=== PATIENT | male | born 1960 | race Asian ===

== ENCOUNTER 2017-12-23 18:58 | Emergency (ER) | payer OTHER ==
[~2017-12-23] VITALS: Ht 175.3 cm; Wt 96.2 kg
[2017-12-23 19:05] VITALS: Ht 175.3 cm; Wt 96.2 kg
[2017-12-23 21:10] LABS: BASOPHIL % 0.5 % (0-2); PLATELET COUNT 341 x10^3mcL (130-400)
[2017-12-23 21:14] LABS: CALCIUM 9.7 mg/dL (8.5-10.1); CREATININE SERUM 1.6 mg/dL (0.7-1.3); POTASSIUM SERUM 4.6 mmol/L (3.5-5.1)
[2017-12-23 21:16] LABS: RED CELL DISTRIBUTION WIDTH 17.2 % (11.5-14.5)
[2017-12-23 21:19] LABS: BILIRUBIN TOTAL 0.53 mg/dL (0.20-1.00); TOTAL PROTEIN, SERUM 7.5 g/dL (6.4-8.2)
[2017-12-23 21:20] LABS: ALBUMIN 2.8 g/dL (3.4-5.0)
[2017-12-23 21:21] LABS: UA SPECIFIC GRAVITY 1.015 (1.005-1.035); microscopic required? YES; urine erythrocyte NEGATIVE (NEGATIVE)
[2017-12-24 00:07] VITALS: BP 129/84
== END 2017-12-24 00:36 | disposition home or self-care (01) ==
LOC: ED 18:58
PROVIDERS: Emergency Medicine
DX: M54.41 Lumbago with sciatica, right side (principal); R68.83 Chills (without fever)
CPT/HCPCS: J1885; J2270; J7030; Q0092

== ENCOUNTER 2018-04-05 17:32 | Inpatient (IN) | payer OTHER ==
[~2018-04-05] VITALS: Ht 172.7 cm; Wt 112.0 kg
[2018-04-05 18:02] VITALS: Ht 172.7 cm; Wt 112.0 kg
[2018-04-05 18:45] LABS: BASOPHIL % 0.3 % (0-2); PLATELET COUNT 343 x10^3mcL (130-400); RED CELL DISTRIBUTION WIDTH 18.5 % (11.5-14.5)
[2018-04-05 18:45] LABS: UA SPECIFIC GRAVITY >=1.030 (1.005-1.035); microscopic required? YES; urine erythrocyte TRACE (NEGATIVE)
[2018-04-05 19:07] LABS: CALCIUM 9.7 mg/dL (8.5-10.1); CARBON DIOXIDE 25.5 mmol/L (21-32); CREATININE SERUM 1.8 mg/dL (0.7-1.3)
[2018-04-05 19:09] LABS: BILIRUBIN TOTAL 0.9 mg/dL (0.20-1.00)
[2018-04-05 19:16] LABS: ALBUMIN 3.1 g/dL (3.4-5.0)
[2018-04-05] MEDS ORDERED: ZANTAC 150150 MG PO (22:37)
[2018-04-05] MEDS ORDERED: GOOD SENSE ASPI81 M3 PO (22:37)
[2018-04-05] MEDS ORDERED: NOR5 (22:37)
[2018-04-05] MEDS ORDERED: ATORVASTATIN CA40 M1 PO (22:38)
[2018-04-05] MEDS ORDERED: ZESTRIL20 MG PO (22:38)
[2018-04-05] MEDS ORDERED: VALACYCLOVIR H500 MG PO (22:38)
[2018-04-05] MEDS ORDERED: CLOPIDOGREL75 M1 PO (22:38)
[2018-04-05] MEDS ORDERED: GABAPENTIN300 M4 PO (22:38)
[2018-04-05] MEDS ORDERED: FENOFIBRATE145 M1 PO (22:39)
[2018-04-05] MEDS ORDERED: TOPROL XL50 MG PO (22:39)
[2018-04-05] MEDS ORDERED: HUMALOG100 UNIT/1 (22:39)
[2018-04-05] MEDS ORDERED: LANTUS SOLOS100 U/M1 SQ (22:39)
[2018-04-06 00:05] VITALS: BP 135/90
[2018-04-06 00:26] LABS: CHOLESTEROL/HDL RATIO 3.7; MAGNESIUM 1.7 mg/dL (1.8-2.4); PHOSPHOROUS 1.9 mg/dL (2.5-4.9); T3 TOTAL 0.65 ng/mL
[2018-04-06 00:32] LABS: FREE T4 1.06 ng/dL (0.76-1.46)
[2018-04-06 00:33] LABS: FREE THYROXINE INDEX 1.6 ug/dL (1.4-4.5); T4(THYROXINE) 4.5 ug/dL (4.7-13.3)
[2018-04-06 02:29] LABS: AMPHETAMINE QUAL UR NONE DETECTED (See below)
[2018-04-06 05:15] VITALS: BP 119/73
[2018-04-06 06:44] LABS: BASOPHIL % 0.1 % (0-2); PLATELET COUNT 294 x10^3mcL (130-400)
[2018-04-06 07:00] LABS: CALCIUM 8.6 mg/dL (8.5-10.1); CARBON DIOXIDE 25.9 mmol/L (21-32); CREATININE SERUM 1.5 mg/dL (0.7-1.3); MAGNESIUM 1.7 mg/dL (1.8-2.4); PHOSPHOROUS 1.4 mg/dL (2.5-4.9)
[2018-04-06 07:03] LABS: RED CELL DISTRIBUTION WIDTH 18.4 % (11.5-14.5)
[2018-04-06 08:14] VITALS: BP 139/80
[2018-04-06 16:44] LABS: TOTAL PROTEIN CSF 132 mg/dL (15-45)
[2018-04-06 17:30] VITALS: BP 127/72
[2018-04-06 17:40] LABS: APPEARANCE CSF HAZY; COLOR CSF COLORLESS; LYMPHOCYTE CSF 40 % (40-80); RBC CSF 23 /cumm (0); WBC CSF 427 /cumm (0-5)
[2018-04-06 21:33] VITALS: BP 117/70
[2018-04-07 05:46] VITALS: BP 107/73
[2018-04-07 06:04] LABS: PLATELET COUNT 276 x10^3mcL (130-400)
[2018-04-07 06:23] LABS: CALCIUM 8.1 mg/dL (8.5-10.1); CARBON DIOXIDE 26.7 mmol/L (21-32); CHLORIDE SERUM 105 mmol/L (98-107); CREATININE SERUM 1.3 mg/dL (0.7-1.3); GFR1 > 60 mL/min; GLUCOSE SERUM 264 mg/dL (74-106); POTASSIUM SERUM 4.8 mmol/L (3.5-5.1); SODIUM SERUM 139 mmol/L (136-145)
[2018-04-07 07:10] LABS: BASOPHIL % 0 % (0-2); RED CELL DISTRIBUTION WIDTH 18.3 % (11.5-14.5)
[2018-04-07 09:00] VITALS: BP 127/87
[2018-04-07 13:15] VITALS: BP 104/69
[2018-04-07 17:15] VITALS: BP 118/84
[2018-04-07 20:58] VITALS: BP 133/83
[2018-04-08 05:28] VITALS: BP 114/64
[2018-04-08 08:08] VITALS: BP 136/76
[2018-04-08 10:30] LABS: BASOPHIL % 0.7 % (0-2); CALCIUM 8.3 mg/dL (8.5-10.1); CARBON DIOXIDE 30.2 mmol/L (21-32); CREATININE SERUM 1.6 mg/dL (0.7-1.3); PLATELET COUNT 343 x10^3mcL (130-400); POTASSIUM SERUM 5.1 mmol/L (3.5-5.1); RED CELL DISTRIBUTION WIDTH 17.5 % (11.5-14.5)
[2018-04-08 14:15] VITALS: BP 157/84
[2018-04-08 17:48] VITALS: BP 132/81
[2018-04-08 20:48] VITALS: BP 121/68
[2018-04-09 05:46] VITALS: BP 131/54
[2018-04-09 06:59] LABS: CALCIUM 8.6 mg/dL (8.5-10.1); CARBON DIOXIDE 25.8 mmol/L (21-32); CHLORIDE SERUM 97 mmol/L (98-107); CREATININE SERUM 1.3 mg/dL (0.7-1.3); GFR1 > 60 mL/min; GLUCOSE SERUM 220 mg/dL (74-106); SODIUM SERUM 130 mmol/L (136-145)
[2018-04-09 07:55] LABS: BASOPHIL % 0.5 % (0-2); PLATELET COUNT 370 x10^3mcL (130-400)
[2018-04-09 09:01] VITALS: BP 138/87
[2018-04-09 12:13] VITALS: BP 127/88
[2018-04-09 16:58] VITALS: BP 138/83
[2018-04-09 21:04] VITALS: BP 144/92
[2018-04-10 05:35] VITALS: BP 127/86
[2018-04-10 06:36] LABS: CALCIUM 8.6 mg/dL (8.5-10.1); CARBON DIOXIDE 26.7 mmol/L (21-32); CHLORIDE SERUM 105 mmol/L (98-107); CREATININE SERUM 1.2 mg/dL (0.7-1.3); GFR1 > 60 mL/min; GLUCOSE SERUM 176 mg/dL (74-106); POTASSIUM SERUM 4.3 mmol/L (3.5-5.1); SODIUM SERUM 140 mmol/L (136-145)
[2018-04-10 08:00] VITALS: BP 113/75
[2018-04-10 08:10] LABS: BASOPHIL % 0.6 % (0-2); PLATELET COUNT 392 x10^3mcL (130-400); RED CELL DISTRIBUTION WIDTH 16.7 % (11.5-14.5)
[2018-04-10] MEDS ORDERED: VANCOMYCIN PER PHARM MC (12:32)
[2018-04-10] MEDS ORDERED: LAC PO (12:32)
[2018-04-10] MEDS ORDERED: CEFTRIAXONE2 GM IV (12:32)
[2018-04-10] MEDS ORDERED: VANCOMYCIN1 GM/1001 IV (12:33)
[2018-04-10 12:57] VITALS: BP 127/88
[2018-04-10 16:35] VITALS: BP 119/74
[2018-04-10 21:03] VITALS: BP 121/70
== END 2018-04-10 21:07 | disposition home or self-care (01) | DRG 720 ==
LOC: ED 17:32 → DU 23:18
PROVIDERS: Emergency Medicine; Family Medicine; Internal Medicine
PROC: 009U3ZX Drainage of Spinal Canal, Percutaneous Approach, Diagnostic (ICD-10-PCS; principal; 2018-04-06)
PROC: B01B1ZZ Fluoroscopy of Spinal Cord using Low Osmolar Contrast (ICD-10-PCS; 2018-04-06)
DX: A41.9 Sepsis, unspecified organism (principal); N17.0 Acute kidney failure with tubular necrosis; G00.9 Bacterial meningitis, unspecified; E11.65 Type 2 diabetes mellitus with hyperglycemia; G89.29 Other chronic pain; M54.5 Low back pain; E83.42 Hypomagnesemia; E44.1 Mild protein-calorie malnutrition; E83.39 Other disorders of phosphorus metabolism; Z98.1 Arthrodesis status; I25.2 Old myocardial infarction; D64.9 Anemia, unspecified; E87.1 Hypo-osmolality and hyponatremia; I10 Essential (primary) hypertension; K21.9 Gastro-esophageal reflux disease without esophagitis; E78.5 Hyperlipidemia, unspecified; I25.10 Atherosclerotic heart disease of native coronary artery without angina pectoris; Z79.4 Long term (current) use of insulin; Z68.31 Body mass index [BMI] 31.0-31.9, adult; Z87.891 Personal history of nicotine dependence
CPT/HCPCS: 62272; 82962; 83880; 84439; 86788; 86789; 90658; J0696; J1100; J1885; J2001; J2270; J2405; J2765; J3010; J3370; J3475; J7030; Q0092; Q0162

== ENCOUNTER 2020-06-08 06:19 | Emergency (ER) | payer OTHER ==
[~2020-06-08] VITALS: Ht 175.3 cm; Wt 98.0 kg
[~2020-06-08 06:19] MED LIST: ATORVASTATIN CA40 M1 PO; CEFTRIAXONE2 GM IV; CLOPIDOGREL75 M1 PO; FENOFIBRATE145 M1 PO; GABAPENTIN300 M4 PO; GOOD SENSE ASPI81 M3 PO; HUMALOG100 UNIT/1; LAC PO; LANTUS SOLOS100 U/M1 SQ; NOR5; TOPROL XL50 MG PO; VALACYCLOVIR H500 MG PO; VANCOMYCIN PER PHARM MC; VANCOMYCIN1 GM/1001 IV; ZANTAC 150150 MG PO; ZESTRIL20 MG PO
[2020-06-08 07:46] VITALS: Ht 175.3 cm; Wt 98.0 kg
[2020-06-08 09:00] LABS: BASOPHIL % 0.3 % (0.2-1.5); PLATELET COUNT 182 x10^3mcL (152-348)
[2020-06-08 09:09] LABS: RED CELL DISTRIBUTION WIDTH 14.6 % (12.1-16.2)
[2020-06-08 10:27] VITALS: BP 88/65
[2020-06-08 10:33] LABS: CARBON DIOXIDE 19.1 mmol/L (21-32); POTASSIUM SERUM 4.1 mmol/L (3.5-5.1)
[2020-06-08 10:39] LABS: BILIRUBIN TOTAL 1.2 mg/dL (0.20-1.00); TOTAL PROTEIN, SERUM 6.6 g/dL (6.4-8.2)
[2020-06-08 10:42] LABS: ALBUMIN 2.9 g/dL (3.4-5.0)
== END 2020-06-08 11:15 | disposition home or self-care (01) ==
LOC: ED 06:19
PROVIDERS: Emergency Medicine
DX: R55 Syncope and collapse (principal); E86.0 Dehydration; I10 Essential (primary) hypertension; E11.9 Type 2 diabetes mellitus without complications; I25.2 Old myocardial infarction